=== PATIENT | female | born 1940 | race Two or more races ===

== ENCOUNTER 2023-12-06 15:12 | Emergency (ER) | payer OTHER ==
[~2023-12-06] VITALS: Ht 167.6 cm; Wt 68.9 kg
[2023-12-06] MEDS ORDERED: NORVASC10 MG PO (15:49)
[2023-12-06] MEDS ORDERED: PROLIA60 MG/1 ML (15:49)
[2023-12-06] MEDS ORDERED: ZESTRIL40 M1 PO (15:49)
[2023-12-06] MEDS ORDERED: TRADJENTA5 MG PO (15:49)
[2023-12-06] MEDS ORDERED: METFORMIN HCL500 M3 PO (15:49)
[2023-12-06] MEDS ORDERED: CARVEDILOL6.25 MG (15:49)
[2023-12-06] MEDS ORDERED: CHILDREN'S ASPI81 MG PO (15:50)
[2023-12-06] MEDS ORDERED: 0.9 % SODIUM CHLORIDE 1,000 ML IV SCH (16:30)
[2023-12-06] MEDS ORDERED: GUAIFENESIN/DEXTROMETHORPHAN 100 MG/5 ML ML PO ONE (16:30)
[2023-12-06] MEDS ORDERED: KETOROLAC TROMETHAMINE 30 MG VIAL IV ONE (16:30)
[2023-12-06 17:14] LABS: PH,URINE 5.5 (5.0-8.0); URINE APPEARANCE Cloudy; URINE BILIRRUBIN Negative (NEGATIVE); URINE BLOOD Negative; URINE COLOR Yellow; URINE GLUCOSE Negative (NEGATIVE); URINE LEUKOCYTE Negative; URINE NITRATE Negative; URINE UROBILINOGEN 0.2 E.U./dl
[2023-12-06 17:18] LABS: URINE BACTERIA 123.4 uL (0.0-1933); URINE EPITHELIAL CELLS 17.3 uL (0.0-38.8); URINE RBC 5.1 uL (0.0-20.8); URINE WBC 5.2 uL (0.0-23.2)
[2023-12-06] MEDS ORDERED: FAMOTIDINE/PF 20 MG in 0.9 % SODIUM CHLORIDE 8 ML IV PUSH STA (17:27)
[2023-12-06 17:30] LABS: HEMATOCRIT 34.4 % (36.0-45.00); HEMOGLOBIN 11.5 g/dL (12.0-15.00); MEAN CELL VOLUME 86.7 fL (80.00-100.00); MEAN CORPUSCULAR HEMOGLOBIN 29.1 pg (27.00-32.0); MEAN CORPUSCULAR HGB CONC 33.5 g/dl (32.0-36.0); PLATELET COUNT 135 K/uL (150-450); RED BLOOD COUNT 3.96 M/uL (4.00-6.00); RED CELL DISTRIBUTION WIDTH 15.8 % (11.5-14.5)
[2023-12-06] MEDS ORDERED: OSELTAMIVIR PHOSPHATE 75 MG CAPSULE PO ONE (17:30)
[2023-12-06 17:33] LABS: URINE PROTEIN 100 (NEGATIVE)
[2023-12-06 17:59] LABS: ALBUMIN 3.3 gm/dL (3.4-5.0); BILIRUBIN TOTAL 0.3 mg/dL (0.3-1.2); CALCIUM 7.9 mg/dL (8.5-10.1); CREATININE SERUM 1.51 mg/dL (0.55-1.02); GFR 32.99; GLOBULINA 4.1 G/DL (2.4-3.5); POTASSIUM 3.86 mEq/L (3.5-5.1); TOTAL PROTEIN 7.4 gm/dL (6.4-8.2)
[2023-12-06] MEDS ORDERED: OSEL75CA PO (18:28)
[2023-12-06] MEDS ORDERED: TUSNEL LIQUID178 ML PO (18:28)
== END 2023-12-06 18:48 | disposition home or self-care (01) ==
LOC: ER 15:12
PROVIDERS: General Practice
DX: J10.1 Influenza due to other identified influenza virus with other respiratory manifestations (principal); I10 Essential (primary) hypertension; E11.9 Type 2 diabetes mellitus without complications; Z79.84 Long term (current) use of oral hypoglycemic drugs; Z20.822 Contact with and (suspected) exposure to COVID-19